=== PATIENT | female | born 1990 | race American Indian/Alaskan Native ===

== ENCOUNTER 2017-03-03 18:54 | Emergency (ER) | payer BC, MEDICAID ==
[2017-03-03 19:26] VITALS: BMI 26.6
[2017-03-03 19:31] VITALS: PULSE 61; O2SAT 100
[2017-03-03] MEDS ORDERED: Naproxen 550 mg Tab PO ONE (19:46)
[2017-03-03] MEDS: Naproxen 550 mg Tab PO STA (19:46)
--- NOTE | 2017-03-03 19:52 | C.PDOC ---
History Of Present Illness 26 y/o female presents to the ED with complaints of right sided neck pain x1.5 hours. Pt denies trauma or changes in sensation. Pain is worse with movement. Pt has not taken any medications for the pain. Time Seen by Provider: 03/03/17 19:28 Chief Complaint (Nursing): Upper Extremity Problem/Injury History Per: Patient History/Exam Limitations: no limitations Onset/Duration Of Symptoms: Hrs Current Symptoms Are (Timing): Still Present Quality Of Discomfort: "Pain" Severity: Mild Previous Symptoms: None Associated Symptoms: None Recent travel outside of the [place]: No Past Medical History Reviewed: Historical Data, Nursing Documentation, Vital Signs Vital Signs: Last Vital Signs Temp 98.2 F 03/03/17 20:05 Pulse 61 03/03/17 20:05 Resp 20 03/03/17 20:05 BP 134/89 03/03/17 20:05 Pulse Ox 100 03/03/17 20:23 - Medical History PMH: Family History: States: Unknown Family Hx - Social History Hx Tobacco Use: No Hx Alcohol Use: Yes Hx Substance Use: No - Immunization History Hx Tetanus Toxoid Vaccination: No Hx Influenza Vaccination: No Hx Pneumococcal Vaccination: No Review Of Systems Except As Marked, All Systems Reviewed And Found Negative. Constitutional: Negative for: Fever Musculoskeletal: Positive for: Neck Pain. Negative for: Back Pain Neurological: Negative for: Weakness, Numbness Physical Exam - Physical Exam Appears: Non-toxic, No Acute Distress Skin: Warm, Dry, No Rash Head: Atraumatic, Normacephalic Eye(s): bilateral: Normal Inspection, PERRL, EOMI Ear(s): Bilateral: Normal Nose: Normal Oral Mucosa: Moist Throat: Normal, No Erythema, No Exudate Neck: Normal, Normal ROM (FROM , pain with rotation to right side), No Midline Cervical Tenderness, Paracervical Tenderness (right sided; trapezius tenderness) , Supple Lymphatic: Normal Exam Chest: Symmetrical Cardiovascular: Rhythm Regular, No Murmur Respiratory: Normal Breath Sounds, No Rales, No Rhonchi, No Wheezing Back: Normal Inspection, No Vertebral Tenderness Extremity: Bilateral: Atraumatic Neurological/Psych: Oriented x3, Normal Speech, Normal Motor, Normal Sensation ED Course And Treatment O2 Sat by Pulse Oximetry: 100 (room air) Pulse Ox Interpretation: Normal Progress Note: Plan: flexeril, naproxen. Reeval: Patient is resting comfortably, is no longer having neck pain, no fever, no bony tenderness, no numbness, no weakness. Patient is ambulatory in the emergency department with no signs of discomfort. Patient was advised to follow up with their physician in 1-2 days. Disposition - Disposition Disposition: HOME/ ROUTINE Disposition Time: 19:50 Condition: STABLE Additional Instructions: Follow up with primary medical doctor in 1-3 days without fail for further evaluation. Take medications as prescribed. Return to the emergency department at any time if symptoms persist or worsen. Prescriptions: Cyclobenzaprine [Cyclobenzaprine HCl] 10 mg PO TID #20 tab Naproxen [Naprosyn] 1 tab PO BID PRN #20 tab PRN Reason: Pain Instructions: Cervical Strain (DC) - Clinical Impression Clinical Impression: Cervical strain - PA / [facility] / Resident Statement MD/DO has reviewed & agrees with the documentation as recorded. - Scribe Statement The provider has reviewed the documentation as recorded by the Ruddy Viramontes All medical record entries made by the Ruddy were at my direction and personally dictated by me. I have reviewed the chart and agree that the record accurately reflects my personal performance of the history, physical exam, medical decision making, and the department course for this patient. I have also personally directed, reviewed, and agree with the discharge instructions and disposition.
[2017-03-03 20:06] VITALS: BP 134/89; RESP 20; TEMP 98.2
== END 2017-03-03 20:53 | disposition home or self-care (01) ==
LOC: C.ER 18:54
DX: S16.1XXA Strain of muscle, fascia and tendon at neck level, initial encounter (principal); X58.XXXA Exposure to other specified factors, initial encounter

== ENCOUNTER 2017-09-11 23:38 | Emergency (ER) | payer BC, MEDICAID ==
[2017-09-11 23:38] VITALS: BMI 26.6
[2017-09-12 00:02] VITALS: RESP 16
--- NOTE | 2017-09-12 00:58 | C.PDOC ---
History Of Present Illness 26 y.o female c/o feeling like something stuck in her throat. pt sts she choked while eating on 09/05/17, then went to bed and had no problems, has been eating and drinking well since then with no cough. tonight pt reports feeling something on right side throat, with pain going to ear, no fever or chills, still able to eat and drink easily. denies dental pain. Time Seen by Provider: 09/12/17 00:08 Chief Complaint (Nursing): ENT Problem History Per: Patient History/Exam Limitations: None Quality (Mouth/Throat): Other ('feels like somethig is there') Symptoms Have Been: Episodic (started tonight) Severity: Mild Anticoagulant/Antiplatlet Use?: No Recent Aspirin Use: No Past Medical History Reviewed: Historical Data, Nursing Documentation, Vital Signs Vital Signs: Last Vital Signs Temp 98.1 F 09/11/17 23:59 Pulse 63 09/11/17 23:59 Resp 16 09/11/17 23:59 BP 143/88 09/11/17 23:59 Pulse Ox 100 09/12/17 01:02 - Medical History PMH: No Chronic Diseases Family History: States: Unknown Family Hx - Social History Hx Tobacco Use: No Hx Alcohol Use: Yes Hx Substance Use: No - Immunization History Hx Tetanus Toxoid Vaccination: No Hx Influenza Vaccination: No Hx Pneumococcal Vaccination: No Review Of Systems Constitutional: Negative for: Fever, Chills ENT: Positive for: Ear Pain, Throat Pain. Negative for: Ear Discharge, Throat Swelling Respiratory: Negative for: Cough Skin: Negative for: Rash Neurological: Negative for: Weakness, Numbness Physical Exam - Physical Exam Appears: Non-toxic, No Acute Distress Skin: Warm, Dry Head: Atraumatic, Normacephalic Oral Mucosa: Moist Tongue: Normal Appearing Lips: Normal Appearing Teeth: Normal Dentition Gingiva: Normal Appearing Throat: Erythema, No Exudate, No Mass Neck: Supple Lymphatic: No Adenopathy Chest: No Deformity, No Tenderness Cardiovascular: Rhythm Regular, No Murmur Respiratory: No Decreased Breath Sounds, No Accessory Muscle Use, No Rales, No Rhonchi, No Wheezing ED Course And Treatment O2 Sat by Pulse Oximetry: 100 Medical Decision Making Medical Decision Making: pt sts she choked while eating on 09/05, now feels something in throat since tonight. no resp distress., no fever or chills. upreg neg. will get soft tissue neck and rapdi strep/ 211 am rapid strep neg, no fb noted on xray, ?nodes right side xray. will d/c with ent f/u. Disposition Counseled Patient/Family Regarding: Diagnosis, Need For Followup - Disposition Referrals: Cezar Mota MD [Staff Provider] - Disposition: HOME/ ROUTINE Disposition Time: 02:12 Condition: STABLE Additional Instructions: Follow up with ENT specialist Dr Mota. Call for appointment. Reutrn to ER for any worse symptms, such as trouble swallowing or breathing or any other concerns. Forms: [employer] (Romanian), Emergency Room Disch/Depart, General Discharge Instructions - Clinical Impression Clinical Impression: Throat discomfort
[2017-09-12 02:19] VITALS: BP 141/90; PULSE 57; TEMP 98.4; O2SAT 99
--- NOTE | 2017-09-12 17:02 | RAD ---
PROCEDURE: Radiographs of the neck (soft tissue). HISTORY: Foreign body sensation right side COMPARISON: None. TECHNIQUE: Frontal and Lateral Radiographs of the neck, optimized for soft tissue visualization. FINDINGS: SOFT TISSUES: Unremarkable. No radiopaque foreign body seen. CERVICAL SPINE: Reversal of the anatomic lordosis with kyphosis OTHER FINDINGS: None. IMPRESSION: No significant or acute findings to account for/ related to the clinical presentation. Additional benign and/or incidental findings described above. Concordant results with the preliminary interpretation rendered by the emergency department physician procedure.
== END 2017-09-12 02:19 | disposition home or self-care (01) ==
LOC: C.ER 23:38
DX: R07.0 Pain in throat (principal)